=== PATIENT | male | born 1960 | race African-American/Black ===

== ENCOUNTER 2019-07-31 18:44 | Inpatient (IN) | payer OTHER ==
[~2019-07-31] VITALS: Ht 160 cm; Wt 78.9 kg
[2019-08-01] MEDS ORDERED: SODIUM CHLORIDE 0.9% 500 ML IV ONE (00:44)
[2019-08-01] MEDS ORDERED: MORPHINE SULFATE 4 MG/ML CPJ (NOT FOR IM USE) IV STA (00:44)
[2019-08-01] MEDS ORDERED: ONDANSETRON HCL 4MG/2ML INJ IV STA (00:44)
[2019-08-01 01:36] LABS: HEMATOCRIT. 38.4 % (42.0-52.0); HEMOGLOBIN. 12.5 g/dL (14.0-18.0); MEAN CORPUSCULAR HEMOGLOBIN 26.7 pg (28.0-32.0); MEAN CORPUSCULAR VOLUME 81.8 fL (80.0-94.0); MEAN PLATELET VOLUME 7.1 fl (7.4-10.4); PLATELET 291 x1000/uL (130-400); RED CELL DISTRIBUTION WIDTH 13.6 % (11.6-14.6)
[2019-08-01 01:42] LABS: CHLORIDE 99 mEq/L (98-107)
[2019-08-01 01:44] LABS: INR 1.2
[2019-08-01] MEDS ORDERED: SODIUM CHLORIDE 0.9% 1,000 ML IV ONE (02:11)
[2019-08-01 02:12] LABS: CLARITY URINE CLEAR (CLEAR); COLOR URINE YELLOW (YELLOW); KETONES URINE NEGATIVE (NEGATIVE); LEUKOCYTE ESTERASE URINE NEGATIVE (NEGATIVE); NITRITE URINE NEGATIVE (NEGATIVE); OCCULT BLOOD URINE TRACE (NEGATIVE); PH URINE 5.5 (4.5-8.0); PROTEIN URINE 2+ (NEGATIVE); SPECIFIC GRAVITY URINE 1.031 (1.005-1.030)
[2019-08-01 02:45] LABS: *AMPHETAMINES SCREEN URINE NEGATIVE (NEGATIVE); *BARBITURATES SCREEN URINE NEGATIVE (NEGATIVE); *BENZODIAZEPINES SCREEN URINE NEGATIVE (NEGATIVE); *COCAINE SCREEN URINE NEGATIVE (NEGATIVE); METHADONE URINE SCREEN NEGATIVE (NEGATIVE); OPIATES URINE SCREEN PRESUMTIVE POSITIVE (NEGATIVE)
[2019-08-01] MEDS ORDERED: IOHEXOL-300 100 ML BOTTLE ONE (02:45)
[2019-08-01 02:46] LABS: CANNABINOID URINE SCREEN PRESUMTIVE POSITIVE (NEGATIVE); PHENCYCLIDINE URINE SCREEN NEGATIVE (NEGATIVE)
[2019-08-01] MEDS ORDERED: MORPHINE SULFATE 4 MG/ML CPJ (NOT FOR IM USE) IV ONE (03:45)
[2019-08-01] MEDS ORDERED: PIPERACILLIN/TAZOBACTAM 3.375GM/50ML PREMIX IV ONE (03:45)
[2019-08-01 03:59] LABS: PLATELET ESTIMATE NORMAL
[2019-08-01] MEDS ORDERED: FENTANYL CITRATE/PF 50MCG/ML 2ML VIAL ONE ×2 (05:21→07:00)
[2019-08-01] MEDS ORDERED: ROCURONIUM BROMIDE 10MG/ML VIAL 5ML IV ONE ×2 (05:21→06:33)
[2019-08-01] MEDS ORDERED: NEOSTIGMINE METHYLSULFATE 1MG/ML 10 ML VIAL ONE (05:21)
[2019-08-01] MEDS ORDERED: PROPOFOL 200MG/20ML VIAL IV ONE (05:21)
[2019-08-01] MEDS ORDERED: GLYCOPYRROLATE 0.2 MG/ML 2ML VIAL ONE (05:22)
[2019-08-01] MEDS ORDERED: MIDAZOLAM HCL 2 MG/2 ML VIAL ONE (05:22)
[2019-08-01] MEDS ORDERED: CEFAZOLIN SODIUM 1000MG/VIAL ONE (05:23)
[2019-08-01] MEDS ORDERED: LIDOCAINE HCL/PF 1% 10 MG/ML 5ML VIAL ONE (05:23)
[2019-08-01] MEDS ORDERED: SODIUM CHLORIDE 0.9% 10ML VIAL ONE ×2 (05:23→05:26)
[2019-08-01] MEDS ORDERED: METOCLOPRAMIDE HCL 10MG/2ML VIAL ONE (05:29)
[2019-08-01] MEDS ORDERED: ONDANSETRON HCL 4MG/2ML INJ ONE (05:29)
[2019-08-01] MEDS ORDERED: NORMAL SALINE 0.9% 10 ML SYR ONE (05:39)
[2019-08-01] MEDS ORDERED: BACITRACIN 15GM TUBE TOP ONE (05:39)
[2019-08-01] MEDS ORDERED: SKIN ADHESIVE 0.7 GM EA TOP ONE (05:39)
[2019-08-01] MEDS ORDERED: BUPIVACAINE HCL 0.5% (5MG/ML) 50ML ONE (05:40)
[2019-08-01] MEDS ORDERED: BACITRACIN 50,000 UNITS/VIAL ONE (05:40)
[2019-08-01] MEDS ORDERED: DEXT 5%/0.45% NACL KCL 20MEQ/L 1,000 ML IV SCH ×2 (06:03→13:00)
[2019-08-01] MEDS ORDERED: ONDANSETRON HCL 4MG/2ML INJ IV PRN (06:15)
[2019-08-01] MEDS ORDERED: ACETAMINOPHEN 650MG SUPP PR PRN (06:15)
[2019-08-01] MEDS ORDERED: HYDROMORPHONE HCL/PF 2MG/ML (OR) ONE (06:49)
[2019-08-01] MEDS ORDERED: BUPIVACAINE HCL 0.5% 290 ML in ON-Q PM015 DRUG DELIV DEVICE 1 EA IR SCH (07:30)
[2019-08-01] MEDS ORDERED: FENTANYL CITRATE/PF 50MCG/ML 2ML VIAL IV PRN (08:30)
[2019-08-01] MEDS ORDERED: DIPHENHYDRAMINE 50MG/ML VIAL IV PRN (08:30)
[2019-08-01 10:23] VITALS: BP 128/82
[2019-08-01 10:33] VITALS: BP 128/82
[2019-08-01] MEDS ORDERED: PIPERACILLIN/TAZ 3.375G PREMIX 50 ML IV SCH (12:00)
[2019-08-01 12:02] VITALS: BP 130/78
[2019-08-01] MEDS: PIPERACILLIN/TAZOBACTAM 3.375 G in DEXT 5% WATER 100 ML IV SCH ×2 (14:47→16:59)
[2019-08-01] MEDS ORDERED: IPRATROPIUM/ALBUTEROL 0.5-3(2.5)MG/3ML NEB HHN PRN (15:00)
[2019-08-01] MEDS: DEXT 5%/0.9% NACL 1,000 ML IV SCH (15:05)
[2019-08-01 15:23] LABS: BG CARBOXYHEMOGLOBIN 0.8 % (0.5-1.5); BG DEOXYHEMOGLOBIN 4.8 % (0.0-5.0); BG FRACTION INSPIRED OXYGEN 21; BG HCO3 ACT 19.8 mmol/L (22.0-26.0); BG METHEMOGLOBIN 0.3 % (0.0-1.5); BG OXYGEN SATURATION 95.1 % (92.0-98.5); BG OXYHEMOGLOBIN 94.1 % (94.0-97.0); BG PCO2 32.6 mmHg (35.0-45.0); BG PH 7.401 (7.350-7.450); BG PO2 78.6 mmHg (75.0-100.0); BG SAMPLE SITE RIGHT RADIAL; BG TOTAL HEMOGLOBIN 14.5 g/dL (12.0-18.0); BG VENT MODE ROOM AIR
[2019-08-01 16:14] VITALS: BP 128/92
[2019-08-01 17:59] LABS: HEMATOCRIT. 40.9 % (42.0-52.0); HEMOGLOBIN. 13.4 g/dL (14.0-18.0); MEAN CORPUSCULAR VOLUME 82.5 fL (80.0-94.0); MEAN PLATELET VOLUME 7.2 fl (7.4-10.4); PLATELET 307 x1000/uL (130-400); RED BLOOD CELL COUNT 4.96 mill/uL (4.7-6.1); RED CELL DISTRIBUTION WIDTH 13.8 % (11.6-14.6)
[2019-08-01 18:07] LABS: CHLORIDE 109 mEq/L (98-107)
[2019-08-01 20:00] VITALS: BP 137/84
[2019-08-01] MEDS: FAMOTIDINE 20MG/2ML VIAL IV SCH (20:22)
[2019-08-01] MEDS: MORPHINE SULFATE 2 MG/ML CPJ (NOT FOR IM USE) IV PRN (20:23)
[2019-08-01 21:37] LABS: PLATELET ESTIMATE NORMAL
[2019-08-01] MEDS ORDERED: METF-416 MT (23:41)
[2019-08-01] MEDS ORDERED: METO-396 MT (23:43)
[2019-08-01] MEDS ORDERED: DEXA2TAB PO (23:45)
[2019-08-01] MEDS ORDERED: LEVE500T98 MT (23:46)
[2019-08-01] MEDS ORDERED: ONDA4TAB50 MT (23:49)
[2019-08-01] MEDS ORDERED: ALPR-341 PO (23:50)
[2019-08-01] MEDS ORDERED: DEXA2TAB MT (23:52)
[2019-08-01] MEDS ORDERED: AMIT100T2 MT (23:54)
[2019-08-01] MEDS ORDERED: CALC-30 MT (23:56)
[2019-08-02 00:11] VITALS: BP 163/98
[2019-08-02] MEDS: MORPHINE SULFATE 2 MG/ML CPJ (NOT FOR IM USE) IV PRN ×4 (00:22→17:22)
[2019-08-02] MEDS: PIPERACILLIN/TAZOBACTAM 3.375 G in DEXT 5% WATER 100 ML IV SCH ×5 (00:25→23:52)
[2019-08-02 04:47] VITALS: BP 150/87
[2019-08-02] MEDS: DEXT 5%/0.9% NACL 1,000 ML IV SCH ×2 (05:03→17:21)
[2019-08-02 06:43] LABS: HEMATOCRIT. 35.9 % (42.0-52.0); HEMOGLOBIN. 11.6 g/dL (14.0-18.0); MEAN CORPUSCULAR HEMOGLOBIN 26.6 pg (28.0-32.0); MEAN CORPUSCULAR VOLUME 82.3 fL (80.0-94.0); MEAN PLATELET VOLUME 7.5 fl (7.4-10.4); PLATELET 269 x1000/uL (130-400); RED BLOOD CELL COUNT 4.36 mill/uL (4.7-6.1); RED CELL DISTRIBUTION WIDTH 13.5 % (11.6-14.6)
[2019-08-02 07:26] LABS: CHLORIDE 109 mEq/L (98-107)
[2019-08-02 08:00] VITALS: BP 165/96
[2019-08-02] MEDS: FAMOTIDINE 20MG/2ML VIAL IV SCH ×2 (09:40→21:08)
[2019-08-02 12:00] VITALS: BP 148/92
[2019-08-02 14:36] LABS: PLATELET ESTIMATE NORMAL
[2019-08-02 16:00] VITALS: BP 167/87
[2019-08-02 20:00] VITALS: BP 163/88
[2019-08-02] MEDS: HYDRALAZINE 20MG/ML VIAL IV PRN (21:08)
[2019-08-03] MEDS: MORPHINE SULFATE 2 MG/ML CPJ (NOT FOR IM USE) IV PRN ×3 (00:13→18:46)
[2019-08-03 00:18] VITALS: BP 162/85
[2019-08-03 04:00] VITALS: BP 170/92
[2019-08-03] MEDS: PIPERACILLIN/TAZOBACTAM 3.375 G in DEXT 5% WATER 100 ML IV SCH ×3 (05:11→17:34)
[2019-08-03] MEDS: DEXT 5%/0.9% NACL 1,000 ML IV SCH ×3 (05:12→21:09)
[2019-08-03] MEDS: HYDRALAZINE 20MG/ML VIAL IV PRN ×2 (05:19→17:34)
[2019-08-03 08:00] VITALS: BP 162/87
[2019-08-03] MEDS: FAMOTIDINE 20MG/2ML VIAL IV SCH ×2 (08:44→21:09)
[2019-08-03 09:10] LABS: CA 19-9 68 U/mL (0-35)
[2019-08-03 12:00] VITALS: BP 149/72
[2019-08-03 16:00] VITALS: BP 155/76
[2019-08-03 20:42] VITALS: BP 146/83
[2019-08-04 00:50] VITALS: BP 142/68
[2019-08-04] MEDS: PIPERACILLIN/TAZOBACTAM 3.375 G in DEXT 5% WATER 100 ML IV SCH ×4 (00:52→17:11)
[2019-08-04 04:00] VITALS: BP 142/86
[2019-08-04 08:00] VITALS: BP 159/72
[2019-08-04] MEDS: DEXT 5%/0.9% NACL 1,000 ML IV SCH ×2 (09:14→22:51)
[2019-08-04] MEDS: FAMOTIDINE 20MG/2ML VIAL IV SCH ×2 (09:14→22:09)
[2019-08-04 12:00] VITALS: BP 152/84
[2019-08-04 16:00] VITALS: BP 154/97
[2019-08-04 20:00] VITALS: BP 154/98
[2019-08-04] MEDS: HYDRALAZINE 20MG/ML VIAL IV PRN (22:10)
[2019-08-05] MEDS: PIPERACILLIN/TAZOBACTAM 3.375 G in DEXT 5% WATER 100 ML IV SCH ×5 (00:07→17:52)
[2019-08-05 00:35] VITALS: BP 154/85
[2019-08-05 04:00] VITALS: BP 142/86
[2019-08-05] MEDS: MORPHINE SULFATE 2 MG/ML CPJ (NOT FOR IM USE) IV PRN (06:24)
[2019-08-05 08:00] VITALS: BP 162/103
[2019-08-05] MEDS ORDERED: ENOXAPARIN 40MG/0.4ML SYR SUBCUT SCH (08:00)
[2019-08-05] MEDS: FAMOTIDINE 20MG/2ML VIAL IV SCH ×2 (08:10→20:38)
[2019-08-05 12:00] VITALS: BP 168/95
[2019-08-05] MEDS: DEXT 5%/0.9% NACL 1,000 ML IV SCH (12:20)
[2019-08-05 16:00] VITALS: BP 156/91
[2019-08-05] MEDS: HYDRALAZINE 20MG/ML VIAL IV PRN (18:03)
[2019-08-05 20:42] VITALS: BP 167/92
[2019-08-06] VITALS (7 sets, daily range): BP systolic 134–177; BP diastolic 80–96
[2019-08-06] MEDS: DEXT 5%/0.9% NACL 1,000 ML IV SCH ×2 (01:40→09:52)
[2019-08-06] MEDS: PIPERACILLIN/TAZOBACTAM 3.375 G in DEXT 5% WATER 100 ML IV SCH ×6 (06:00→23:53)
[2019-08-06] MEDS: FAMOTIDINE 20MG/2ML VIAL IV SCH ×2 (09:50→20:43)
[2019-08-06] MEDS: APIXABAN 5 MG TABLET PO SCH ×2 (09:50→18:24)
[2019-08-06] MEDS: HYDRALAZINE 20MG/ML VIAL IV PRN (11:32)
[2019-08-06] MEDS: MORPHINE SULFATE 2 MG/ML CPJ (NOT FOR IM USE) IV PRN (20:44)
[2019-08-07 00:19] VITALS: BP 137/71
[2019-08-07] MEDS: DEXT 5%/0.9% NACL 1,000 ML IV SCH ×2 (03:31→18:57)
[2019-08-07 04:00] VITALS: BP 140/77
[2019-08-07] MEDS: PIPERACILLIN/TAZOBACTAM 3.375 G in DEXT 5% WATER 100 ML IV SCH ×3 (05:06→19:05)
[2019-08-07] MEDS: APIXABAN 5 MG TABLET PO SCH ×2 (09:00→17:00)
[2019-08-07] MEDS: FAMOTIDINE 20MG/2ML VIAL IV SCH ×2 (09:00→21:44)
[2019-08-07] MEDS ORDERED: LISI10TA5 PO (14:49)
[2019-08-07] MEDS ORDERED: IPRATROPIUM/ALBUTEROL 0.5-3(2.5)MG/3ML NEB HHN PRN (17:00)
[2019-08-07] MEDS ORDERED: BISACODYL 10MG SUPP PR PRN (17:00)
[2019-08-07] MEDS ORDERED: BISACODYL 10MG SUPP PR NR (17:00)
[2019-08-07 17:38] LABS: HEMATOCRIT. 36.9 % (42.0-52.0); HEMOGLOBIN. 11.7 g/dL (14.0-18.0); MEAN CORPUSCULAR HEMOGLOBIN 26.2 pg (28.0-32.0); MEAN CORPUSCULAR VOLUME 82.9 fL (80.0-94.0); MEAN PLATELET VOLUME 6.8 fl (7.4-10.4); PLATELET 346 x1000/uL (130-400); RED BLOOD CELL COUNT 4.45 mill/uL (4.7-6.1); RED CELL DISTRIBUTION WIDTH 13.8 % (11.6-14.6)
[2019-08-07 18:00] LABS: CHLORIDE 107 mEq/L (98-107)
[2019-08-07 21:27] LABS: PLATELET ESTIMATE NORMAL
[2019-08-07] MEDS: MORPHINE SULFATE 2 MG/ML CPJ (NOT FOR IM USE) IV PRN (22:31)
[2019-08-08] VITALS: BP 133/82
[2019-08-08] MEDS: PIPERACILLIN/TAZOBACTAM 3.375 G in DEXT 5% WATER 100 ML IV SCH ×4 (00:10→17:51)
[2019-08-08 04:00] VITALS: BP 146/86
[2019-08-08] MEDS: DEXT 5%/0.9% NACL 1,000 ML IV SCH ×3 (06:26→20:47)
[2019-08-08 06:53] LABS: CHLORIDE 107 mEq/L (98-107)
[2019-08-08 06:54] LABS: HEMATOCRIT 33.8 % (42.0-52.0); HEMOGLOBIN 11.2 g/dL (14.0-18.0); MEAN CORPUSCULAR HEMOGLOBIN 27.2 pg (28.0-32.0); MEAN CORPUSCULAR VOLUME 82.1 fL (80.0-94.0); PLATELET 322 x1000/uL (130-400); RED BLOOD CELL COUNT 4.12 mill/uL (4.7-6.1); RED CELL DISTRIBUTION WIDTH 13.8 % (11.6-14.6)
[2019-08-08 08:00] VITALS: BP 150/91
[2019-08-08] MEDS: FAMOTIDINE 20MG/2ML VIAL IV SCH ×2 (08:54→21:00)
[2019-08-08] MEDS: APIXABAN 5 MG TABLET PO SCH ×2 (08:54→17:51)
[2019-08-08] MEDS ORDERED: LIDOCAINE HCL 1% 20ML VIAL (Pyxis) INJ ONE (09:16)
[2019-08-08 12:00] VITALS: BP 145/104
[2019-08-08 16:00] VITALS: BP 131/89
[2019-08-08 20:28] VITALS: BP 147/90
[2019-08-09] VITALS (7 sets, daily range): BP systolic 128–162; BP diastolic 80–100
[2019-08-09] MEDS: MORPHINE SULFATE 2 MG/ML CPJ (NOT FOR IM USE) IV PRN (01:31)
[2019-08-09] MEDS: APIXABAN 5 MG TABLET PO SCH ×2 (08:35→16:35)
[2019-08-09] MEDS: FAMOTIDINE 20MG/2ML VIAL IV SCH ×2 (08:35→22:08)
[2019-08-09] MEDS: AMLODIPINE 5MG TABLET PO SCH ×2 (09:48→22:14)
[2019-08-09] MEDS: DEXT 5%/0.9% NACL 1,000 ML IV SCH ×2 (09:48→23:00)
[2019-08-09] MEDS ORDERED: CLONIDINE 0.1MG TABLET PO PRN (17:45)
[2019-08-10 04:00] VITALS: BP 138/91
[2019-08-10 08:00] VITALS: BP 137/93
[2019-08-10] MEDS: AMLODIPINE 5MG TABLET PO SCH (09:58)
[2019-08-10] MEDS: FAMOTIDINE 20MG/2ML VIAL IV SCH (09:58)
[2019-08-10] MEDS: APIXABAN 5 MG TABLET PO SCH (09:58)
[2019-08-10 12:00] VITALS: BP 135/90
[2019-08-10] MEDS ORDERED: APIX5TAB MT (13:43)
[2019-08-10] MEDS ORDERED: HYDR-4001 MT (13:43)
[2019-08-10 14:35] VITALS: BP 130/76
[2019-08-10 14:54] VITALS: BP 130/73
== END 2019-08-10 16:55 | disposition home or self-care (01) | DRG 231 ==
LOC: ER 18:44 → CANBEDREQ 08-01 04:31 → ENRESERV 08-01 06:09 → 5WST 08-01 11:24 → 6WST 08-01 11:46 → 6EST 08-09 23:33
PROVIDERS: ADMIT Internal Medicine; ATTEND Internal Medicine
PROC: 0DTF0ZZ Resection of Right Large Intestine, Open Approach (ICD-10-PCS; principal; 2019-08-01)
PROC: 0W9G3ZZ Drainage of Peritoneal Cavity, Percutaneous Approach (ICD-10-PCS; 2019-08-01)
PROC: 0D9670Z Drainage of Stomach with Drainage Device, Via Natural or Artificial Opening (ICD-10-PCS; 2019-08-01)
PROC: 02HV33Z Insertion of Infusion Device into Superior Vena Cava, Percutaneous Approach (ICD-10-PCS; 2019-08-08)
PROC: B5181ZA Fluoroscopy of Superior Vena Cava using Low Osmolar Contrast, Guidance (ICD-10-PCS; 2019-08-08)
PROC: B548ZZA Ultrasonography of Superior Vena Cava, Guidance (ICD-10-PCS; 2019-08-08)
DX: C18.9 Malignant neoplasm of colon, unspecified (principal); K56.601 Complete intestinal obstruction, unspecified as to cause; K85.90 Acute pancreatitis without necrosis or infection, unspecified; N17.9 Acute kidney failure, unspecified; C78.00 Secondary malignant neoplasm of unspecified lung; I82.409 Acute embolism and thrombosis of unspecified deep veins of unspecified lower extremity; E44.1 Mild protein-calorie malnutrition; C78.7 Secondary malignant neoplasm of liver and intrahepatic bile duct; E87.1 Hypo-osmolality and hyponatremia; G20 Parkinson's disease; D64.9 Anemia, unspecified; K42.9 Umbilical hernia without obstruction or gangrene; I13.0 Hypertensive heart and chronic kidney disease with heart failure and stage 1 through stage 4 chronic kidney disease, or unspecified chronic kidney disease; K56.7 Ileus, unspecified; N18.9 Chronic kidney disease, unspecified; Z86.718 Personal history of other venous thrombosis and embolism; I50.9 Heart failure, unspecified; I48.91 Unspecified atrial fibrillation; I27.20 Pulmonary hypertension, unspecified; M10.9 Gout, unspecified; F17.210 Nicotine dependence, cigarettes, uncomplicated; R18.8 Other ascites; J44.9 Chronic obstructive pulmonary disease, unspecified; Z79.899 Other long term (current) drug therapy; Z68.30 Body mass index [BMI] 30.0-30.9, adult
CPT/HCPCS: 36415; 36573; 36600; 71045; 71250; 74018; 74177; 76937; 80048; 80053; 80305; 81003; 82105; 82140; 82375; 82378; 82805; 82962; 83605; 84550; 85025; 85027; 86301; 86850; 86900; 88307; 93005; 93306; 93970; 97116; 97162; 97166; 97530; 97535; 99285; C1725; C1769; J0360; J0690; J1170; J1650; J2250; J2270; J2405; J2543; J2704; J2710; J2765; J3010; J3490; J7030; J7042; J7060; Q9967

== ENCOUNTER 2019-08-25 11:30 | Emergency (ER) | payer OTHER ==
[~2019-08-25 11:30] MED LIST: APIX5TAB MT; HYDR-4001 MT; LISI10TA5 MT; LISI10TA5 PO; METR500T MT; SULF1TAB48 MT
== END 2019-08-25 11:57 | disposition left against medical advice (07) ==
LOC: ER 11:30
DX: R68.89 Other general symptoms and signs (principal); Z53.21 Procedure and treatment not carried out due to patient leaving prior to being seen by health care provider

== ENCOUNTER 2019-09-19 04:30 | Inpatient (IN) | payer OTHER ==
[~2019-09-19] VITALS: Ht 182.9 cm; Wt 67.8 kg
[2019-09-19] MEDS ORDERED: SODIUM CHLORIDE 0.9% 1,000 ML IV ONE ×2 (04:43→04:59)
[2019-09-19] MEDS ORDERED: ONDANSETRON HCL 4MG/2ML INJ IV STA (04:59)
[2019-09-19] MEDS ORDERED: MORPHINE SULFATE 4 MG/ML CPJ (NOT FOR IM USE) IV STA (04:59)
[2019-09-19] MEDS ORDERED: LORAZEPAM 2MG/ML CPJ IV ONE (05:30)
[2019-09-19 05:52] LABS: BASOPHILS % 0.8 % (0.0-2.0); EOSINOPHILS % 3.8 % (0.0-5.0); LYMPHOCYTES % 27.2 % (20.0-50.0); MEAN CORPUSCULAR HEMOGLOBIN 27.6 pg (28.0-32.0); MEAN CORPUSCULAR VOLUME 84.9 fL (80.0-94.0); MEAN PLATELET VOLUME 8.2 fl (7.4-10.4); MONOCYTES % 7.6 % (2.0-8.0); NEUTROPHILS % 60.6 % (40.0-76.0); PLATELET 226 x1000/uL (130-400); RED BLOOD CELL COUNT 4.71 mill/uL (4.7-6.1); RED CELL DISTRIBUTION WIDTH 17.2 % (11.6-14.6)
[2019-09-19 05:54] LABS: CHLORIDE 100 mEq/L (98-107)
[2019-09-19 05:57] LABS: INR 1.1; PARTIAL THROMBOPLASTIN TIME 30.5 sec (23.4-31.0); PROTHROMBIN TIME 11.6 sec (9.6-11.0)
[2019-09-19 09:00] VITALS: BP 168/97
[2019-09-19 12:00] VITALS: BP 147/93
[2019-09-19] MEDS ORDERED: ACETAMINOPHEN 650MG SUPP PR PRN (14:15)
[2019-09-19] MEDS: ONDANSETRON HCL 4MG/2ML INJ IV PRN ×2 (15:28→21:40)
[2019-09-19] MEDS: MORPHINE SULFATE 2 MG/ML CPJ (NOT FOR IM USE) IV PRN ×2 (15:28→21:41)
[2019-09-19 16:00] VITALS: BP 156/90
[2019-09-19] MEDS: POTASSIUM CHLORIDE INJ 10 MEQ in DEXT 5%/0.9% NACL 1,000 ML IV SCH (17:04)
[2019-09-19] MEDS: ENOXAPARIN 80MG/0.8ML SYR SUBCUT SCH (18:29)
[2019-09-19] MEDS: FAMOTIDINE 20MG/2ML VIAL IV SCH (21:40)
[2019-09-19] MEDS: LORAZEPAM 2MG/ML CPJ IV PRN (21:41)
[2019-09-20 00:25] VITALS: BP 163/103
[2019-09-20] MEDS: POTASSIUM CHLORIDE INJ 10 MEQ in DEXT 5%/0.9% NACL 1,000 ML IV SCH ×2 (02:32→14:20)
[2019-09-20] MEDS: LORAZEPAM 2MG/ML CPJ IV PRN (02:41)
[2019-09-20] MEDS: ONDANSETRON HCL 4MG/2ML INJ IV PRN (02:41)
[2019-09-20] MEDS: MORPHINE SULFATE 2 MG/ML CPJ (NOT FOR IM USE) IV PRN ×2 (02:50→08:10)
[2019-09-20 03:20] LABS: CLARITY URINE CLEAR (CLEAR); COLOR URINE YELLOW (YELLOW); KETONES URINE NEGATIVE (NEGATIVE); LEUKOCYTE ESTERASE URINE NEGATIVE (NEGATIVE); NITRITE URINE NEGATIVE (NEGATIVE); OCCULT BLOOD URINE NEGATIVE (NEGATIVE); PH URINE 6.5 (4.5-8.0); PROTEIN URINE 3+ (NEGATIVE); SPECIFIC GRAVITY URINE 1.028 (1.005-1.030); UROBILINOGEN URINE 0.2 E.U./dL (0.2-1.0)
[2019-09-20 03:33] LABS: *AMPHETAMINES SCREEN URINE NEGATIVE (NEGATIVE); *BARBITURATES SCREEN URINE NEGATIVE (NEGATIVE); *BENZODIAZEPINES SCREEN URINE NEGATIVE (NEGATIVE); *COCAINE SCREEN URINE NEGATIVE (NEGATIVE); METHADONE URINE SCREEN NEGATIVE (NEGATIVE); OPIATES URINE SCREEN PRESUMTIVE POSITIVE (NEGATIVE)
[2019-09-20 03:34] LABS: CANNABINOID URINE SCREEN PRESUMTIVE POSITIVE (NEGATIVE); PHENCYCLIDINE URINE SCREEN NEGATIVE (NEGATIVE)
[2019-09-20] MEDS: ENOXAPARIN 80MG/0.8ML SYR SUBCUT SCH ×2 (06:08→17:47)
[2019-09-20 06:10] LABS: BASOPHILS % 0.3 % (0.0-2.0); EOSINOPHILS % 0.1 % (0.0-5.0); HEMATOCRIT. 36.5 % (42.0-52.0); HEMOGLOBIN. 11.9 g/dL (14.0-18.0); LYMPHOCYTES % 13.4 % (20.0-50.0); MEAN CORPUSCULAR HEMOGLOBIN 27.1 pg (28.0-32.0); MEAN CORPUSCULAR VOLUME 83.5 fL (80.0-94.0); MEAN PLATELET VOLUME 8.3 fl (7.4-10.4); MONOCYTES % 11.2 % (2.0-8.0); PLATELET 195 x1000/uL (130-400); RED BLOOD CELL COUNT 4.37 mill/uL (4.7-6.1); RED CELL DISTRIBUTION WIDTH 16.7 % (11.6-14.6)
[2019-09-20 06:19] LABS: CHLORIDE 105 mEq/L (98-107)
[2019-09-20 06:30] LABS: PHOSPHORUS 3.9 mg/dL (2.5-4.9)
[2019-09-20 08:00] VITALS: BP 157/100
[2019-09-20] MEDS: FAMOTIDINE 20MG/2ML VIAL IV SCH ×2 (10:40→20:17)
[2019-09-20 11:55] VITALS: BP 171/102
[2019-09-20] MEDS: HYDRALAZINE 20MG/ML VIAL IV PRN (13:00)
[2019-09-20 15:40] VITALS: BP 153/98
[2019-09-20 20:26] VITALS: BP 145/94
[2019-09-21] MEDS ORDERED: MAGNESIUM 2 G PREMIX 50 ML IV NR
[2019-09-21 00:12] VITALS: BP 119/82
[2019-09-21] MEDS: POTASSIUM CHLORIDE INJ 10 MEQ in DEXT 5%/0.9% NACL 1,000 ML IV SCH ×2 (03:46→18:17)
[2019-09-21 04:00] VITALS: BP 133/88
[2019-09-21] MEDS: ENOXAPARIN 80MG/0.8ML SYR SUBCUT SCH ×2 (05:42→18:17)
[2019-09-21 06:00] LABS: CHLORIDE 107 mEq/L (98-107)
[2019-09-21 06:01] LABS: BASOPHILS % 0.8 % (0.0-2.0); HEMATOCRIT. 35.4 % (42.0-52.0); HEMOGLOBIN. 11.5 g/dL (14.0-18.0); LYMPHOCYTES % 23.4 % (20.0-50.0); MEAN CORPUSCULAR HEMOGLOBIN 27.4 pg (28.0-32.0); MEAN CORPUSCULAR VOLUME 83.9 fL (80.0-94.0); MEAN PLATELET VOLUME 8.2 fl (7.4-10.4); MONOCYTES % 11.1 % (2.0-8.0); NEUTROPHILS % 63.7 % (40.0-76.0); PLATELET 197 x1000/uL (130-400); RED BLOOD CELL COUNT 4.22 mill/uL (4.7-6.1); RED CELL DISTRIBUTION WIDTH 16.9 % (11.6-14.6)
[2019-09-21 08:00] VITALS: BP 160/97
[2019-09-21] MEDS: HYDRALAZINE 20MG/ML VIAL IV PRN (08:52)
[2019-09-21] MEDS: FAMOTIDINE 20MG/2ML VIAL IV SCH ×2 (08:52→21:52)
[2019-09-21 12:00] VITALS: BP 145/89
[2019-09-21 16:00] VITALS: BP 156/93
[2019-09-21 20:00] VITALS: BP 145/92
[2019-09-22 00:11] VITALS: BP 151/90
[2019-09-22 04:00] VITALS: BP 118/78
[2019-09-22] MEDS: POTASSIUM CHLORIDE INJ 10 MEQ in DEXT 5%/0.9% NACL 1,000 ML IV SCH ×2 (04:18→06:13)
[2019-09-22] MEDS: ENOXAPARIN 80MG/0.8ML SYR SUBCUT SCH (06:12)
[2019-09-22 06:16] LABS: BASOPHILS % 0.9 % (0.0-2.0); EOSINOPHILS % 3.2 % (0.0-5.0); HEMATOCRIT. 34.7 % (42.0-52.0); HEMOGLOBIN. 11.2 g/dL (14.0-18.0); LYMPHOCYTES % 26.8 % (20.0-50.0); MEAN CORPUSCULAR HEMOGLOBIN 27.3 pg (28.0-32.0); MEAN CORPUSCULAR VOLUME 84.5 fL (80.0-94.0); MEAN PLATELET VOLUME 8.4 fl (7.4-10.4); MONOCYTES % 12.9 % (2.0-8.0); NEUTROPHILS % 56.2 % (40.0-76.0); PLATELET 185 x1000/uL (130-400); RED BLOOD CELL COUNT 4.11 mill/uL (4.7-6.1); RED CELL DISTRIBUTION WIDTH 16.7 % (11.6-14.6)
[2019-09-22 06:45] LABS: CHLORIDE 107 mEq/L (98-107)
[2019-09-22 08:00] VITALS: BP 144/87
[2019-09-22] MEDS: FAMOTIDINE 20MG/2ML VIAL IV SCH (08:38)
[2019-09-22] MEDS ORDERED: LACTULOSE 20G/30ML UDC PO SCH (12:15)
[2019-09-22 12:31] VITALS: BP 136/97
[2019-09-22] MEDS ORDERED: APIX5TAB MT (13:07)
[2019-09-22] MEDS ORDERED: FAMO-135 MT (13:07)
[2019-09-22] MEDS ORDERED: LOSA50TA3 MT (13:07)
[2019-09-22] MEDS ORDERED: DOCU-138 MT (13:07)
[2019-09-22 14:47] VITALS: BP 136/97
== END 2019-09-22 15:30 | disposition home or self-care (01) | DRG 247 ==
LOC: ER 04:30 → 6WST 06:06 → ENRESERV 07:53
PROVIDERS: ADMIT Internal Medicine; ATTEND Internal Medicine
DX: K56.600 Partial intestinal obstruction, unspecified as to cause (principal); C18.2 Malignant neoplasm of ascending colon; D64.9 Anemia, unspecified; M10.9 Gout, unspecified; I10 Essential (primary) hypertension; R19.00 Intra-abdominal and pelvic swelling, mass and lump, unspecified site; Z86.718 Personal history of other venous thrombosis and embolism
CPT/HCPCS: 36415; 71045; 74018; 74176; 80048; 80053; 80305; 81003; 83735; 84100; 84145; 85025; 86850; 86900; 93005; 93970; 97162; J0360; J1650; J2060; J2270; J2405; J3475; J3480; J3490; J7030; J7042

== ENCOUNTER 2020-02-26 17:07 | Inpatient (IN) | payer OTHER ==
[~2020-02-26] VITALS: Ht 175.3 cm; Wt 71.7 kg
[~2020-02-26 17:07] MED LIST changes: +DOCU-138 MT; +FAMO-135 MT; -LISI10TA5 MT; -LISI10TA5 PO; +LOSA50TA3 MT
[2020-02-26] MEDS ORDERED: ONDANSETRON 4MG ODT PO STA (18:40)
[2020-02-26] MEDS ORDERED: HYDROCODONE/ACETAMINOPHEN 5/325MG TABLET PO STA (18:40)
[2020-02-26 19:18] LABS: CLARITY URINE CLEAR (CLEAR); COLOR URINE YELLOW (YELLOW); KETONES URINE NEGATIVE (NEGATIVE); LEUKOCYTE ESTERASE URINE NEGATIVE (NEGATIVE); NITRITE URINE NEGATIVE (NEGATIVE); OCCULT BLOOD URINE NEGATIVE (NEGATIVE); PROTEIN URINE NEGATIVE (NEGATIVE); UROBILINOGEN URINE 0.2 E.U./dL (0.2-1.0)
[2020-02-26 19:46] LABS: CHLORIDE 97 mEq/L (98-107); HEMATOCRIT. 43.9 % (42.0-52.0); HEMOGLOBIN. 14.4 g/dL (14.0-18.0); MEAN CORPUSCULAR HEMOGLOBIN 26.2 pg (28.0-32.0); MEAN CORPUSCULAR VOLUME 79.8 fL (80.0-94.0); MEAN PLATELET VOLUME 7.7 fl (7.4-10.4); PLATELET 229 x1000/uL (130-400); RED CELL DISTRIBUTION WIDTH 15.2 % (11.6-14.6)
[2020-02-26 19:58] LABS: INR 1.2; PROTHROMBIN TIME 12.3 sec (9.6-11.0)
[2020-02-26 21:57] LABS: PLATELET ESTIMATE NORMAL
[2020-02-26] MEDS ORDERED: DOCUSATE SODIUM 100MG CAPSULE PO PRN (23:15)
[2020-02-26] MEDS ORDERED: MORPHINE SULFATE 2 MG/ML CPJ (NOT FOR IM USE) IV PRN (23:15)
[2020-02-26] MEDS ORDERED: LORAZEPAM 2MG/ML CPJ IV PRN (23:15)
[2020-02-26] MEDS ORDERED: CLONIDINE 0.1MG TABLET PO PRN (23:15)
[2020-02-26] MEDS ORDERED: DEXTROSE 50% WATER 50ML SYRINGE IV PRN (23:15)
[2020-02-26] MEDS ORDERED: GUAIFENESIN 200MG/10ML SUGAR FREE UDC PO PRN (23:15)
[2020-02-26] MEDS ORDERED: ONDANSETRON HCL 4MG/2ML INJ IV PRN (23:15)
[2020-02-26] MEDS ORDERED: DIPHENHYDRAMINE 50MG/ML VIAL IV PRN (23:15)
[2020-02-26] MEDS ORDERED: MAGNESIUM/ALUMINUM HYDROXIDE/SIMETHICONE 30ML UDC PO PRN (23:15)
[2020-02-26] MEDS ORDERED: HYDROCODONE/ACETAMINOPHEN 10/325MG TABLET PO PRN (23:15)
[2020-02-26] MEDS ORDERED: HYDRALAZINE 20MG/ML VIAL IV PRN (23:15)
[2020-02-26] MEDS ORDERED: IPRATROPIUM/ALBUTEROL 0.5-3(2.5)MG/3ML NEB HHN PRN (23:15)
[2020-02-26] MEDS ORDERED: ACETAMINOPHEN 325MG TABLET PO PRN (23:15)
[2020-02-27] MEDS: DEXT 5%/0.45% NACL 1000ML 1,000 ML IV SCH ×2 (00:26→20:07)
[2020-02-27 05:30] LABS: HEMATOCRIT. 40.7 % (42.0-52.0); HEMOGLOBIN. 13.2 g/dL (14.0-18.0); MEAN CORPUSCULAR HEMOGLOBIN 25.9 pg (28.0-32.0); MEAN CORPUSCULAR VOLUME 79.7 fL (80.0-94.0); MEAN PLATELET VOLUME 7.5 fl (7.4-10.4); PLATELET 189 x1000/uL (130-400); RED CELL DISTRIBUTION WIDTH 14.9 % (11.6-14.6)
[2020-02-27 05:31] LABS: CHLORIDE 99 mEq/L (98-107)
[2020-02-27 05:45] VITALS: BP 133/82
[2020-02-27] MEDS ORDERED: LISI-186 PO (06:07)
[2020-02-27] MEDS ORDERED: APIX5TAB PO (06:09)
[2020-02-27] MEDS ORDERED: DOCU-150 PO (06:10)
[2020-02-27] MEDS: SODIUM CHLORIDE 0.9% INJ 3ML FLUSH IVF SCH ×3 (06:41→21:08)
[2020-02-27] MEDS: ENOXAPARIN 40MG/0.4ML SYR SUBCUT SCH ×2 (06:41→08:47)
[2020-02-27] MEDS: BLOOD SUGAR DIAGNOSTIC STRIP TEST SCH ×4 (06:41→20:51)
[2020-02-27] MEDS ORDERED: HYDRALAZINE 10 MG in DEXTROSE 5% WATER 50 ML IV PRN (06:45)
[2020-02-27 07:03] LABS: PLATELET ESTIMATE NORMAL
[2020-02-27 07:46] VITALS: BP 126/88
[2020-02-27] MEDS: INSULIN LISPRO 100 UNITS/ML SUBCUT SCH ×4 (07:47→21:00)
[2020-02-27 11:58] VITALS: BP 108/78
[2020-02-27 16:00] VITALS: BP 112/85
[2020-02-27] MEDS: LISINOPRIL 5MG TABLET PO SCH (16:36)
[2020-02-27] MEDS: DOCUSATE SODIUM 100MG CAPSULE PO SCH (16:36)
[2020-02-27] MEDS: APIXABAN 5 MG TABLET PO SCH (16:37)
[2020-02-27 20:00] VITALS: BP 113/80
[2020-02-28] VITALS: BP 105/75
[2020-02-28 04:00] VITALS: BP_SYST 103; BP_SYST 168; BP_DIAS 68
[2020-02-28] MEDS: SODIUM CHLORIDE 0.9% INJ 3ML FLUSH IVF SCH ×2 (05:40→13:35)
[2020-02-28] MEDS: BLOOD SUGAR DIAGNOSTIC STRIP TEST SCH ×2 (06:40→12:03)
[2020-02-28] MEDS: INSULIN LISPRO 100 UNITS/ML SUBCUT SCH ×2 (07:26→12:03)
[2020-02-28 08:00] VITALS: BP 112/75
[2020-02-28] MEDS: LISINOPRIL 5MG TABLET PO SCH (08:45)
[2020-02-28] MEDS: DOCUSATE SODIUM 100MG CAPSULE PO SCH (08:45)
[2020-02-28] MEDS: APIXABAN 5 MG TABLET PO SCH (08:46)
[2020-02-28] MEDS ORDERED: FAMOTIDINE 20MG TABLET PO SCH (09:00)
[2020-02-28 12:00] VITALS: BP 101/73
[2020-02-28 13:48] VITALS: BP 101/73
== END 2020-02-28 15:15 | disposition home or self-care (01) | DRG 240 ==
LOC: ER 17:07 → 6EST 02-27 00:08 → ENRESERV 02-27 04:01
PROVIDERS: ADMIT Internal Medicine; ATTEND Internal Medicine
DX: C78.5 Secondary malignant neoplasm of large intestine and rectum (principal); R10.9 Unspecified abdominal pain; E11.9 Type 2 diabetes mellitus without complications; I10 Essential (primary) hypertension; R74.0 Nonspecific elevation of levels of transaminase and lactic acid dehydrogenase [LDH]; E78.5 Hyperlipidemia, unspecified; E46 Unspecified protein-calorie malnutrition; Z79.899 Other long term (current) drug therapy; E87.1 Hypo-osmolality and hyponatremia; Z85.028 Personal history of other malignant neoplasm of stomach; Z79.01 Long term (current) use of anticoagulants; Z68.23 Body mass index [BMI] 23.0-23.9, adult; Z85.038 Personal history of other malignant neoplasm of large intestine
CPT/HCPCS: 36415; 74176; 80053; 81003; 82962; 83605; 85025; 93005; 93970; 99285; J1650; J2270; J2405; Q0162

== ENCOUNTER 2020-03-11 13:12 | Inpatient (IN) | payer MEDICAID, OTHER ==
[2020-03-11] VITALS (7 sets, daily range): BP systolic 72–116; BP diastolic 61–75
[~2020-03-11] VITALS: Ht 177.8 cm; Wt 69.4 kg
[~2020-03-11 13:12] MED LIST changes: +APIX5TAB PO; +DOCU-150 PO; +LISI-186 PO
[2020-03-11] MEDS ORDERED: ASPIRIN 81MG TABLET PO ONE (14:00)
[2020-03-11] MEDS ORDERED: SODIUM CHLORIDE 0.9% 1000ML BAG (SEPSIS BOLUS) IV ONE (14:30)
[2020-03-11 15:01] LABS: HEMATOCRIT. 39.6 % (42.0-52.0); HEMOGLOBIN. 13.1 g/dL (14.0-18.0); MEAN CORPUSCULAR HEMOGLOBIN 26.1 pg (28.0-32.0); MEAN CORPUSCULAR VOLUME 78.6 fL (80.0-94.0); MEAN PLATELET VOLUME 7.4 fl (7.4-10.4); PLATELET 247 x1000/uL (130-400); RED BLOOD CELL COUNT 5.04 mill/uL (4.7-6.1); RED CELL DISTRIBUTION WIDTH 14.3 % (11.6-14.6)
[2020-03-11 15:05] LABS: CHLORIDE 96 mEq/L (98-107)
[2020-03-11 15:07] LABS: D-DIMER 2.06 mg/L FEU (<0.50); INR 1.2; PROTHROMBIN TIME 12.5 sec (9.6-11.0)
[2020-03-11 15:59] LABS: PLATELET ESTIMATE NORMAL
[2020-03-11] MEDS ORDERED: VANCOMYCIN 1 G PREMIX 200 ML IV ONE (17:00)
[2020-03-11] MEDS ORDERED: PIPERACILLIN/TAZ 3.375G PREMIX 50 ML IV ONE (17:00)
[2020-03-11 17:14] LABS: CLARITY URINE CLEAR (CLEAR); COLOR URINE YELLOW (YELLOW); KETONES URINE TRACE (NEGATIVE); LEUKOCYTE ESTERASE URINE NEGATIVE (NEGATIVE); NITRITE URINE NEGATIVE (NEGATIVE); OCCULT BLOOD URINE NEGATIVE (NEGATIVE); PROTEIN URINE NEGATIVE (NEGATIVE); SPECIFIC GRAVITY URINE 1.011 (1.005-1.030); UROBILINOGEN URINE 0.2 E.U./dL (0.2-1.0)
[2020-03-11] MEDS ORDERED: NOREPINEPHRINE 8 MG in DEXT 5% WATER 242 ML IV STA (17:27)
[2020-03-11] MEDS ORDERED: NOREPINEPHRINE 8MG/250ML PMX 250 ML IV SCH (21:45)
[2020-03-11] MEDS ORDERED: IOHEXOL-350 100 ML BOTTLE ONE (22:44)
[2020-03-11] MEDS ORDERED: MORPHINE SULFATE 2 MG/ML CPJ (NOT FOR IM USE) IV PRN (23:45)
[2020-03-11] MEDS ORDERED: ONDANSETRON HCL 4MG/2ML INJ IV PRN (23:45)
[2020-03-12] VITALS (85 sets, daily range): BP systolic 65–124; BP diastolic 39–80
[2020-03-12] MEDS: DEXT 5%/0.9% NACL 1,000 ML IV SCH ×3 (00:13→15:12)
[2020-03-12] MEDS: PIPERACILLIN/TAZOBACTAM 3.375 G in DEXT 5% WATER 100 ML IV SCH ×3 (01:45→17:24)
[2020-03-12] MEDS ORDERED: NOREPINEPHRINE 8MG/250ML PMX 250 ML IV PRN (02:00)
[2020-03-12 05:15] LABS: HEMATOCRIT. 40.6 % (42.0-52.0); HEMOGLOBIN. 13.4 g/dL (14.0-18.0); MEAN CORPUSCULAR HEMOGLOBIN 26.2 pg (28.0-32.0); MEAN CORPUSCULAR VOLUME 79.6 fL (80.0-94.0); MEAN PLATELET VOLUME 7.6 fl (7.4-10.4); PLATELET 258 x1000/uL (130-400); RED CELL DISTRIBUTION WIDTH 14.7 % (11.6-14.6)
[2020-03-12] MEDS ORDERED: PIPERACILLIN/TAZOBACTAM 3.375 G/VIAL IV SCH (06:00)
[2020-03-12] MEDS: PANTOPRAZOLE SODIUM 40 MG/VIAL IV SCH (09:09)
[2020-03-12] MEDS: APIXABAN 5 MG TABLET PO SCH ×2 (09:09→17:25)
[2020-03-12] MEDS: NOREPINEPHRINE 8 MG in DEXT 5% WATER 242 ML IV PRN ×2 (10:24→17:24)
[2020-03-12] MEDS ORDERED: PNEUMOCOCCAL 23-VAL P-SAC VAC 0.5 ML IM ONE (12:00)
[2020-03-12 12:38] LABS: PLATELET ESTIMATE NORMAL
[2020-03-12] MEDS: VANCOMYCIN 1 G PREMIX 200 ML IV SCH (14:48)
[2020-03-12 15:11] LABS: TOTAL IRON BINDING CAPACITY 182 ug/dL (250-450)
[2020-03-13] VITALS (96 sets, daily range): BP systolic 60–149; BP diastolic 20–93
[2020-03-13] MEDS: PIPERACILLIN/TAZOBACTAM 3.375 G in DEXT 5% WATER 100 ML IV SCH ×4 (00:07→17:46)
[2020-03-13] MEDS: NOREPINEPHRINE 8 MG in DEXT 5% WATER 242 ML IV PRN (00:07)
[2020-03-13] MEDS: DEXT 5%/0.9% NACL 1,000 ML IV SCH ×4 (00:07→17:22)
[2020-03-13 01:16] LABS: SODIUM URINE RANDOM 25 mEq/L
[2020-03-13 05:54] LABS: CHLORIDE 106 mEq/L (98-107)
[2020-03-13 05:59] LABS: PHOSPHORUS 2.3 mg/dL (2.5-4.9)
[2020-03-13 06:32] LABS: HEMATOCRIT. 34.9 % (42.0-52.0); HEMOGLOBIN. 11.4 g/dL (14.0-18.0); MEAN CORPUSCULAR VOLUME 79.7 fL (80.0-94.0); MEAN PLATELET VOLUME 7.9 fl (7.4-10.4); PLATELET 225 x1000/uL (130-400); RED BLOOD CELL COUNT 4.38 mill/uL (4.7-6.1); RED CELL DISTRIBUTION WIDTH 14.6 % (11.6-14.6)
[2020-03-13] MEDS: APIXABAN 5 MG TABLET PO SCH ×2 (09:10→17:03)
[2020-03-13] MEDS: PANTOPRAZOLE SODIUM 40 MG/VIAL IV SCH (09:10)
[2020-03-13] MEDS: VANCOMYCIN 1 G PREMIX 200 ML IV SCH (09:42)
[2020-03-13] MEDS ORDERED: IPRATROPIUM/ALBUTEROL 0.5-3(2.5)MG/3ML NEB HHN PRN (11:00)
[2020-03-13] MEDS ORDERED: MIDODRINE HCL 5MG TABLET PO NR ×2 (11:12→11:15)
[2020-03-13] MEDS ORDERED: MAGNESIUM 2 G PREMIX 50 ML IV NR (12:00)
[2020-03-13 12:37] LABS: PLATELET ESTIMATE NORMAL
[2020-03-13] MEDS: MIDODRINE HCL 5MG TABLET PO SCH ×2 (13:09→16:16)
[2020-03-13] MEDS ORDERED: LACTULOSE 20G/30ML UDC PO NR (14:45)
[2020-03-13] MEDS ORDERED: VANCOMYCIN 1 G PREMIX 200 ML IV SCH (20:00)
[2020-03-14 00:19] VITALS: BP 97/68
[2020-03-14] MEDS: DEXT 5%/0.9% NACL 1,000 ML IV SCH ×4 (00:24→23:15)
[2020-03-14] MEDS: PIPERACILLIN/TAZOBACTAM 3.375 G in DEXT 5% WATER 100 ML IV SCH ×5 (00:24→23:15)
[2020-03-14 04:00] VITALS: BP 101/70
[2020-03-14 08:00] VITALS: BP 96/68
[2020-03-14 08:15] LABS: HEMATOCRIT. 37.4 % (42.0-52.0); HEMOGLOBIN. 12.2 g/dL (14.0-18.0); MEAN CORPUSCULAR VOLUME 79.7 fL (80.0-94.0); MEAN PLATELET VOLUME 7.8 fl (7.4-10.4); PLATELET 225 x1000/uL (130-400); RED BLOOD CELL COUNT 4.69 mill/uL (4.7-6.1); RED CELL DISTRIBUTION WIDTH 14.7 % (11.6-14.6)
[2020-03-14 08:49] LABS: CHLORIDE 105 mEq/L (98-107)
[2020-03-14 09:05] LABS: PHOSPHORUS 2.8 mg/dL (2.5-4.9)
[2020-03-14] MEDS: PANTOPRAZOLE SODIUM 40 MG/VIAL IV SCH (10:42)
[2020-03-14] MEDS: APIXABAN 5 MG TABLET PO SCH ×2 (10:44→19:02)
[2020-03-14] MEDS: MIDODRINE HCL 5MG TABLET PO SCH ×3 (10:44→19:03)
[2020-03-14] MEDS: DOCUSATE SODIUM 250MG CAPSULE PO SCH (10:44)
[2020-03-14 12:00] VITALS: BP 92/57
[2020-03-14 13:56] LABS: PLATELET ESTIMATE NORMAL
[2020-03-14 16:00] VITALS: BP 108/64
[2020-03-14] MEDS ORDERED: HYDROCODONE/ACETAMINOPHEN 10/325MG TABLET PO PRN (16:15)
[2020-03-14] MEDS: IPRATROPIUM/ALBUTEROL 0.5-3(2.5)MG/3ML NEB HHN SCH (20:02)
[2020-03-14 20:13] VITALS: BP 95/70
[2020-03-14] MEDS: ACETYLCYSTEINE 100MG/ML 10% VIAL 4ML INH SCH (23:21)
[2020-03-15 00:44] VITALS: BP 92/62
[2020-03-15] MEDS: IPRATROPIUM/ALBUTEROL 0.5-3(2.5)MG/3ML NEB HHN SCH ×2 (01:16→08:51)
[2020-03-15 04:46] VITALS: BP 92/61
[2020-03-15] MEDS: PIPERACILLIN/TAZOBACTAM 3.375 G in DEXT 5% WATER 100 ML IV SCH ×2 (05:58→12:03)
[2020-03-15] MEDS: DEXT 5%/0.9% NACL 1,000 ML IV SCH (05:58)
[2020-03-15 08:00] VITALS: BP 101/75
[2020-03-15] MEDS: ACETYLCYSTEINE 100MG/ML 10% VIAL 4ML INH SCH (08:51)
[2020-03-15] MEDS: DOCUSATE SODIUM 250MG CAPSULE PO SCH (08:59)
[2020-03-15] MEDS: PANTOPRAZOLE SODIUM 40 MG/VIAL IV SCH (08:59)
[2020-03-15] MEDS: MIDODRINE HCL 5MG TABLET PO SCH ×2 (08:59→12:19)
[2020-03-15] MEDS: APIXABAN 5 MG TABLET PO SCH (08:59)
[2020-03-15 12:00] VITALS: BP 109/76
[2020-03-15] MEDS ORDERED: ACETAMINOPHEN 325MG TABLET PO PRN ×2 (12:30)
[2020-03-15 12:39] LABS: HEMATOCRIT. 33.5 % (42.0-52.0); HEMOGLOBIN. 10.9 g/dL (14.0-18.0); MEAN CORPUSCULAR HEMOGLOBIN 25.9 pg (28.0-32.0); MEAN CORPUSCULAR VOLUME 79.5 fL (80.0-94.0); MEAN PLATELET VOLUME 7.7 fl (7.4-10.4); PLATELET 199 x1000/uL (130-400); RED BLOOD CELL COUNT 4.22 mill/uL (4.7-6.1); RED CELL DISTRIBUTION WIDTH 14.6 % (11.6-14.6)
[2020-03-15 12:41] LABS: CHLORIDE 107 mEq/L (98-107)
[2020-03-15] MEDS ORDERED: AMOX1TAB16 MT (12:56)
[2020-03-15 13:09] VITALS: BP 109/74
[2020-03-15 13:56] LABS: PLATELET ESTIMATE NORMAL
== END 2020-03-15 15:35 | disposition home health service (06) | DRG 720 ==
LOC: ER 13:12 → MICUSO 17:27 → ENRESERV 20:54 → ER 22:12 → 6WST 03-13 16:30
PROVIDERS: ADMIT Internal Medicine; ATTEND Internal Medicine
PROC: 06HY33Z Insertion of Infusion Device into Lower Vein, Percutaneous Approach (ICD-10-PCS; principal; 2020-03-11)
DX: A41.9 Sepsis, unspecified organism (principal); R65.21 Severe sepsis with septic shock; J96.00 Acute respiratory failure, unspecified whether with hypoxia or hypercapnia; I27.20 Pulmonary hypertension, unspecified; C78.00 Secondary malignant neoplasm of unspecified lung; D72.810 Lymphocytopenia; E87.1 Hypo-osmolality and hyponatremia; D63.0 Anemia in neoplastic disease; I10 Essential (primary) hypertension; R59.9 Enlarged lymph nodes, unspecified; N17.9 Acute kidney failure, unspecified; Z20.828 Contact with and (suspected) exposure to other viral communicable diseases; C79.89 Secondary malignant neoplasm of other specified sites; E11.9 Type 2 diabetes mellitus without complications; C77.9 Secondary and unspecified malignant neoplasm of lymph node, unspecified; C19 Malignant neoplasm of rectosigmoid junction; J18.9 Pneumonia, unspecified organism; Z86.718 Personal history of other venous thrombosis and embolism; Z85.05 Personal history of malignant neoplasm of liver; Z85.048 Personal history of other malignant neoplasm of rectum, rectosigmoid junction, and anus; Z79.01 Long term (current) use of anticoagulants; Z79.899 Other long term (current) drug therapy; Z79.891 Long term (current) use of opiate analgesic; Z87.891 Personal history of nicotine dependence; Z90.49 Acquired absence of other specified parts of digestive tract
CPT/HCPCS: 36415; 71045; 71275; 80048; 80053; 80202; 81003; 82378; 82728; 83036; 83540; 83550; 83605; 83735; 83880; 83935; 84100; 84145; 84156; 84300; 84484; 85025; 85379; 87070; 87635; 90732; 93005; 97116; 97162; 97530; 99291; C9113; J2270; J2543; J3370; J3475; J3490; J7030; J7042; J7060; J7608; Q9967